=== PATIENT | male | born 1960 | race Caucasian/White ===

== ENCOUNTER 2021-05-07 08:58 | Inpatient (IN) ==
[2021-05-07] MEDS ORDERED: Aspirin 81 MG TAB.CHEW PO ONE (09:17)
[2021-05-07] MEDS ORDERED: Isovue-370 500 ML BOTTLE IVP ONE (09:23)
[2021-05-07] MEDS ORDERED: *HR* Heparin 5,000 UNIT/ML VIAL ONE (09:24)
[2021-05-07] MEDS ORDERED: *HR* Ticagrelor 90 MG TABLET ONE (09:24)
[2021-05-07] MEDS ORDERED: 0.9 % Sodium Chloride 1,000 ML ONE (09:25)
[2021-05-07] MEDS ORDERED: Aspirin 81 MG TAB.CHEW ONE (09:25)
[2021-05-07] MEDS ORDERED: *HR* Heparin 5,000 UNIT/ML VIAL IVP ONE (09:29)
[2021-05-07] MEDS ORDERED: *HR* Ticagrelor 90 MG TABLET PO ONE ×2 (09:31→09:35)
[2021-05-07 09:32] LABS: Basophils # 0.1 K/mcL (0.0-0.2); Basophils % 0.5 %; Eosinophils # 0.2 K/mcL (0.0-0.6); Eosinophils % 2.3 %; Hematocrit 48.5 % (37.5-50.1); Hemoglobin 16.8 g/dL (12.9-16.9); Immature Granulocytes % 0.3 % (0-4); Lymphocytes # 3.8 K/mcL (0.6-4.6); Lymphocytes % 40.1 %; Mean Corpuscular HGB Conc 34.6 g/dL (31.6-35.5); Mean Corpuscular Hemoglobin 31.5 pg (28.0-33.3); Mean Platelet Volume 11.5 fL (9.4-12.4); Monocytes % 10.8 %; Neutrophils # 4.4 K/mcL (1.6-8.9); Platelet Count 180 K/mcL (140-400); Red Blood Count 5.33 M/mcL (4.19-5.50); Red Cell Distribution Width 12.6 % (11.5-14.5); White Blood Count 9.5 K/mcL (4.3-11.1)
[2021-05-07 09:39] LABS: INR 1.1; Prothrombin Time 12.4 Seconds (9.4-12.1)
[2021-05-07] MEDS ORDERED: Heparin 1,000 UNITS/500 mL 500 ML ONE ×2 (09:40→10:24)
[2021-05-07] MEDS ORDERED: Nitroglycerin 1,000 MCG/5 ML VIAL IV ONE (09:40)
[2021-05-07] MEDS ORDERED: ISOVUE-370 200 ML INFUS..BTL ONE ×2 (09:40→10:24)
[2021-05-07] MEDS ORDERED: *HR* Heparin 10,000 UNIT/10 ML VIAL ONE (09:40)
[2021-05-07] MEDS ORDERED: 0.9 % Sodium Chloride 2,000 ML ONE (09:40)
[2021-05-07 09:42] LABS: Activated Partial Thrombo Time 30.5 Seconds (26.0-36.0)
[2021-05-07] MEDS ORDERED: 0.9 % Sodium Chloride 1,000 ML IVC ONE (09:42)
[2021-05-07] MEDS ORDERED: *HR* Midazolam HCl 2 MG/2 ML VIAL ONE ×2 (09:54→10:27)
[2021-05-07] MEDS ORDERED: *HR* FentaNYL (PF) 100 MCG/2 ML VIAL ONE ×2 (09:54→10:27)
[2021-05-07] MEDS ORDERED: Tirofiban 12.5 MG/250ML 12.5 MG/250 ML BAG ONE (10:02)
[2021-05-07] MEDS ORDERED: *HR* Atropine Sulfate 1 MG/10 ML SYRINGE ONE (10:06)
[2021-05-07 10:21] LABS: BUN/Creatinine Ratio 13 (6-26); Blood Urea Nitrogen 14 mg/dL (8-23); Carbon Dioxide 21 mEq/L (23-29); Chloride 105 mEq/L (98-107); Glucose 258 mg/dL (70-105); Magnesium 1.8 mg/dL (1.6-2.6); Osmolality,Calculated 291 (280-300); Potassium 3.8 mEq/L (3.5-5.1); Sodium 136 mEq/L (136-145); Troponin I < 0.03 ng/mL (< 0.04); eGFR For African Americans > 60 (> 60); eGFR For Non-African Americans > 60 (> 60)
[2021-05-07 10:43] LABS: Influenza A PCR Negative (Negative)
[2021-05-07 10:44] LABS: Influenza B PCR Negative (Negative); Resp. Syncytial Virus PCR Negative (Negative); SARS-CoV-2 by PCR (In House) Negative (Negative)
[2021-05-07] MEDS ORDERED: Perflutren Lipid Microsphere 1.3 ML in 0.9 % Sodium Chloride 8.7 ML IVP PRN (10:48)
[2021-05-07] MEDS: Tirofiban 12.5 MG/250ML 12.5 MG/250 ML BAG IVC SCH ×2 (17:47→21:07)
[2021-05-07] MEDS: *HR* Ticagrelor 90 MG TABLET PO SCH (20:47)
[2021-05-07] MEDS ORDERED: hydrALAZINE 25 MG TABLET PO ONE (21:07)
[2021-05-08] MEDS: lisinopriL 20 MG TABLET PO SCH ×2 (00:56→07:50)
[2021-05-08 03:32] LABS: Basophils % 0.2 %; Eosinophils # 0.1 K/mcL (0.0-0.6); Eosinophils % 0.7 %; Hematocrit 46.4 % (37.5-50.1); Hemoglobin 16.5 g/dL (12.9-16.9); Immature Granulocytes % 0.2 % (0-4); Lymphocytes # 2.7 K/mcL (0.6-4.6); Mean Corpuscular HGB Conc 35.6 g/dL (31.6-35.5); Mean Corpuscular Volume 90.1 fL (83.0-100.0); Mean Platelet Volume 11.3 fL (9.4-12.4); Monocytes # 1.1 K/mcL (0.0-1.3); Monocytes % 8.7 %; Neutrophils # 8.3 K/mcL (1.6-8.9); Platelet Count 159 K/mcL (140-400); Red Blood Count 5.15 M/mcL (4.19-5.50); Red Cell Distribution Width 12.4 % (11.5-14.5); Segmented Neutrophils % 68.2 %; White Blood Count 12.2 K/mcL (4.3-11.1)
[2021-05-08 03:45] LABS: BUN/Creatinine Ratio 14 (6-26); Blood Urea Nitrogen 13 mg/dL (8-23); Carbon Dioxide 20 mEq/L (23-29); Chloride 106 mEq/L (98-107); Glucose 175 mg/dL (70-105); Osmolality,Calculated 284 (280-300); Potassium 3.8 mEq/L (3.5-5.1); Sodium 135 mEq/L (136-145); eGFR For African Americans > 60 (> 60); eGFR For Non-African Americans > 60 (> 60)
[2021-05-08] MEDS: Aspirin 81 MG TAB.CHEW PO SCH (07:50)
[2021-05-08] MEDS: *HR* Ticagrelor 90 MG TABLET PO SCH ×2 (07:51→21:33)
[2021-05-08] MEDS: Tirofiban 12.5 MG/250ML 12.5 MG/250 ML BAG IVC SCH (11:02)
[2021-05-08] MEDS: NIFEdipine XL (24 HR) 30 MG TAB.ER.24 PO SCH (11:17)
[2021-05-08 12:39] LABS: Basophils % 0.4 %; Eosinophils % 0.3 %; Hemoglobin 16.6 g/dL (12.9-16.9); Immature Granulocytes % 0.4 % (0-4); Lymphocytes % 20.9 %; Mean Corpuscular HGB Conc 34.6 g/dL (31.6-35.5); Mean Corpuscular Hemoglobin 31.5 pg (28.0-33.3); Mean Corpuscular Volume 91.1 fL (83.0-100.0); Mean Platelet Volume 11.6 fL (9.4-12.4); Monocytes # 0.8 K/mcL (0.0-1.3); Monocytes % 8.8 %; Neutrophils # 6.5 K/mcL (1.6-8.9); Platelet Count 160 K/mcL (140-400); Red Blood Count 5.27 M/mcL (4.19-5.50); Red Cell Distribution Width 12.7 % (11.5-14.5); Segmented Neutrophils % 69.2 %; White Blood Count 9.4 K/mcL (4.3-11.1)
[2021-05-08 15:15] LABS: Estimated Average Glucose 214 mg/dl; Hemoglobin A1C 9.1 %
[2021-05-09 08:09] LABS: Chol/HDL Ratio 6.8 (0-4.9)
[2021-05-09] MEDS: Aspirin 81 MG TAB.CHEW PO SCH (09:16)
[2021-05-09] MEDS: lisinopriL 20 MG TABLET PO SCH (09:16)
[2021-05-09] MEDS: NIFEdipine XL (24 HR) 30 MG TAB.ER.24 PO SCH (09:17)
[2021-05-09] MEDS: *HR* Ticagrelor 90 MG TABLET PO SCH (09:17)
[2021-05-09 10:20] VITALS: BP 154/100; PULSE 73; TEMP 97.9; O2SAT 96
== END 2021-05-09 11:31 | disposition home or self-care (01) | DRG 247 ==
LOC: 2NENU 08:58 → EMEROOARM 08:58 → 2NENU 09:47
PROVIDERS: ADMIT Internal Medicine Cardiovascular Disease; ATTEND Internal Medicine Cardiovascular Disease